=== PATIENT | male | born 1995 | race African-American/Black ===

== ENCOUNTER 2022-05-07 19:22 | Emergency (ER) | payer OTHER ==
[~2022-05-07] VITALS: Ht 182.9 cm; Wt 90.5 kg
[2022-05-07 19:22] VITALS: BP 120/63
[2022-05-07] MEDS ORDERED: BICT1TAB2 PO (19:36)
[2022-05-07] MEDS ORDERED: PERCOCET 5MG/325MG TAB PO ONE (21:35)
[2022-05-07] MEDS ORDERED: LIDOCAINE 1% MDV 20ML VIAL INFIL ONE (21:35)
== END 2022-05-07 23:48 | disposition home or self-care (01) ==
LOC: M ED 19:22
DX: S62.616A Displaced fracture of proximal phalanx of right little finger, initial encounter for closed fracture (principal); W23.0XXA Caught, crushed, jammed, or pinched between moving objects, initial encounter; Y92.310 Basketball court as the place of occurrence of the external cause; Y93.67 Activity, basketball; Y99.8 Other external cause status

== ENCOUNTER 2022-05-18 15:01 | Day surgery (SDC) | payer OTHER ==
[~2022-05-18] VITALS: Ht 182.9 cm; Wt 90.0 kg
[~2022-05-18 15:01] MED LIST: BICT1TAB2 PO
[2022-05-18] MEDS ORDERED: BENA25CA4 PO (15:35)
[2022-05-18] MEDS ORDERED: ceFAZolin SOD 2 GM in IV 1 EA IV ONE (15:50)
[2022-05-18] MEDS ORDERED: fentaNYL 100 MCG/2 ML INJECTION As Ordered ONE (17:17)
[2022-05-18] MEDS ORDERED: MIDAZOLAM INJ 2MG/2ML VIAL As Ordered ONE (17:17)
[2022-05-18] MEDS ORDERED: ONDANSETRON 4MG 2ML VIAL As Ordered ONE (17:18)
[2022-05-18] MEDS ORDERED: LIDOCAINE 2% 100MG/5ML SDV (FOR ANES.) As Ordered ONE (17:18)
[2022-05-18] MEDS ORDERED: propofoL 200 MG/20 ML VIAL As Ordered ONE (17:18)
[2022-05-18] MEDS ORDERED: ceFAZolin 2 GM/D5W 50 ML IV BAG As Ordered ONE (17:25)
[2022-05-18] MEDS: LIDOCAINE 2% MDV 20ML VIAL As Ordered ONE ×2 (18:05→18:15)
[2022-05-18] MEDS: BUPIVACAINE HCL 0.25% 30ML VIAL As Ordered ONE ×2 (18:05→18:15)
[2022-05-18] MEDS ORDERED: GLYCOPYRROLATE INJ 0.2 MG/ML 2 ML VIAL As Ordered ONE (18:47)
[2022-05-18] MEDS ORDERED: BACITRACIN OINTMENT 30GM TUBE As Ordered ONE (19:20)
[2022-05-18] MEDS ORDERED: oxyCODONE 5MG TAB PO PRN (19:45)
[2022-05-18] MEDS ORDERED: HYDROMORPHONE HCL 0.5 MG/ 0.5 ML SYRINGE IV PRN (19:45)
[2022-05-18] MEDS ORDERED: LR 1,000 ML IV SCH (19:45)
[2022-05-18] MEDS ORDERED: fentaNYL 100 MCG/2 ML INJECTION IV PRN (19:45)
[2022-05-18] MEDS ORDERED: ONDANSETRON 4MG 2ML VIAL IV PRN (19:45)
[2022-05-18 20:45] VITALS: BP 125/75
== END 2022-05-18 21:00 | disposition home or self-care (01) ==
LOC: M SDC 15:01
PROVIDERS: ATTEND Student in an Organized Health Care Education/Training Program
DX: S62.626A Displaced fracture of middle phalanx of right little finger, initial encounter for closed fracture (principal); S64.496A Injury of digital nerve of right little finger, initial encounter; X58.XXXA Exposure to other specified factors, initial encounter; Y92.89 Other specified places as the place of occurrence of the external cause; B20 Human immunodeficiency virus [HIV] disease; Z79.899 Other long term (current) drug therapy
CPT/HCPCS: 26426; 26735; 76000; 87635; C1713; J1100; J2250; J2405; J3010; S0020